=== PATIENT | female | born 1995 | race Caucasian/White ===

== ENCOUNTER 2017-07-04 18:22 | Emergency (ER) | payer OTHER ==
[2017-07-04 18:31] VITALS: BMI 33.4
--- NOTE | 2017-07-04 20:33 | PDOC ---
History of Present Illness - General History Source: Patient Exam Limitations: No Limitations - History of Present Illness Initial Comments: 07/04/17 20:35 22 y/o 7 week F (LMP: May 14, ) with no PMHx presents to the ED with vaginal bleeding today around 4 pm. Patient also reports intermittent sharp left sided abdominal pain since yesterday. The pain occurred about 3-4 times yesterday and only lasted a few seconds before resolving. Patient reports the pain is a 7-8/10. She reports increased nausea and vomiting since yesterday as well, and reports one episode of vomiting today. Patient has associated frontal headache. She reports her last coitis was one week ago. Patients first appointment with her OBGYN for her is tomorrow. Her last was otherwise normal with the exception of having an emergency at 41 weeks due to distress. During her last she had chlamydia, which was treated. She is currently taking vitamins with iron. She denies tobacco, alcohol, or drug use. She denies fever, chills, chest pain, SOB, urinary complaints. OBGYN; Chelsea Crow <Chanell Guallpa - Last Filed: 07/04/17 22:38> <Any Gaviria - Last Filed: 07/04/17 22:44> - General Chief Complaint: Vaginal Bleeding Stated Complaint: VAGINAL BLEEDING/7 WKS Time Seen by Provider: 07/04/17 18:49 Past History <Chanell Guallpa - Last Filed: 07/04/17 22:38> - Past Medical History Asthma: No Cancer: No Cardiac Disorders: No Diabetes: No HTN: No Seizures: No Thyroid Disease: No - Reproductive History (#): 2 Para: 1 Therapeutic (s) & number: No Spontaneous : 0 - Immunization History Immunization Up to Date: Yes - Suicide/Smoking/Psychosocial Hx Smoking History: Never smoked Have you smoked in the past 12 months: No Hx Alcohol Use: No Drug/Substance Use Hx: No Substance Use Type: None Hx Substance Use Treatment: No <Any Gaviria - Last Filed: 07/04/17 22:44> - Past Medical History Allergies/Adverse Reactions: Allergies Allergy/AdvReac Type Severity Reaction Status Date / Time No Known Allergies Allergy Verified 07/04/17 18:29 Home Medications: Ambulatory Orders NK [No Known Home Medication] 07/04/17 Review of Systems - Review of Systems Able to Perform ROS?: Yes Comments:: 07/04/17 20:35 CONSTITUTIONAL: Absent: fever, chills, diaphoresis, generalized weakness, malaise, loss of appetite HEENT: Absent: rhinorrhea, nasal congestion, throat pain, throat swelling, difficulty swallowing, mouth swelling, ear pain, eye pain, visual changes CARDIOVASCULAR: Absent: chest pain, syncope, palpitations, irregular heart rate , lightheadedness, peripheral edema RESPIRATORY: Absent: cough, shortness of breath, dyspnea with exertion, orthopnea, wheezing, stridor, hemoptysis GASTROINTESTINAL: (+) left sided abdominal pain, nausea, vomiting. Absent: diarrhea, constipation, melena, hematochezia GENITOURINARY: (+) vaginal bleeding. Absent: dysuria, frequency, urgency, hesitancy, hematuria, flank pain, genital pain MUSCULOSKELETAL: Absent: myalgia, arthralgia, joint swelling SKIN: Absent: rash, itching, pallor HEMATOLOGIC/IMMUNOLOGIC: Absent: easy bleeding, easy bruising, lymphadenopathy, frequent infections ENDOCRINE: Absent: unexplained weight gain, unexplained weight loss, heat intolerance, cold intolerance NEUROLOGIC: (+) headache Absent:focal weakness or paresthesias, dizziness, unsteady gait, seizure, mental status changes, bladder or bowel incontinence PSYCHIATRIC: Absent: anxiety, depression, suicidal or homicidal ideation, hallucinations. <Chanell Guallpa - Last Filed: 07/04/17 22:38> *Physical Exam - Vital Signs Last Vital Signs Temp Pulse Resp BP Pulse Ox 98.6 F 88 18 115/57 100 07/04/17 18:29 07/04/17 18:29 07/04/17 18:29 07/04/17 18:29 07/04/17 18:29 - Physical Exam Comments: 07/04/17 20:35 GENERAL: Well developed, well nourished. Awake and alert. No acute distress. HEENT: Normocephalic, atraumatic. PERRLA, EOMI. No conjunctival pallor. Sclera are non-icteric. Moist mucous membranes. Oropharynx is clear. NECK: Supple. Full ROM. No JVD. Carotid pulses 2+ and symmetric, without bruits. No thyromegaly. No lymphadenopathy. CARDIOVASCULAR: Regular rate and rhythm. No murmurs, rubs, or gallops. Distal pulses are 2+ and symmetric. PULMONARY: No evidence of respiratory distress. Lungs clear to auscultation bilaterally. No wheezing, rales or rhonchi. ABDOMINAL: Soft. Non-tender. Non-distended. No rebound or guarding. No organomegaly. Normoactive bowel sounds. MUSCULOSKELETAL: Normal range of motion at all joints. No bony deformities or tenderness. No CVA tenderness. EXTREMITIES: No cyanosis. No clubbing. No edema. No calf tenderness. SKIN: Warm and dry. Normal capillary refill. No rashes. No jaundice. NEUROLOGICAL: Alert, awake, appropriate. Cranial nerves 2-12 intact. No deficits to light touch and temperature in face, upper extremities and lower extremities. No motor deficits in the in face, upper extremities and lower extremities. Normoreflexic in the upper and lower extremities. Normal speech. Toes are downgoing bilaterally. Gait is normal without ataxia. PSYCHIATRIC: Cooperative. Good eye contact. Appropriate mood and affect. : No adnexal tenderness, no significant bleeding, os is closed, no CMT, cervix was slightly erythematous <Chanell Guallpa - Last Filed: 07/04/17 22:38> - Vital Signs Last Vital Signs Temp Pulse Resp BP Pulse Ox 98.6 F 88 18 115/57 100 07/04/17 18:29 07/04/17 18:29 07/04/17 18:29 07/04/17 18:29 07/04/17 18:29 <Any Gaviria - Last Filed: 07/04/17 22:44> ED Treatment Course - RADIOLOGY Radiograph Interpretation: 07/04/17 22:38 Transvaginal US reported by Dr. Pineda Navarro Impression: Single viable intrauterine gestation at approximately 5 weeks 6 days. The embryonic cardiac rate is somewhat low measuring 66 bpm - ? transient finding versus bradycardia. 2 cm complex left ovarian cyst probably representing a corpus luteum. <Chanell Guallpa - Last Filed: 07/04/17 22:38> - RADIOLOGY Radiology Studies Ordered: Category Date Time Status TRANSVAGINAL US PREG [US] Stat Ultrasound 07/04/17 19:21 Ordered <Any Gaviria - Last Filed: 07/04/17 22:44> Medical Decision Making - Medical Decision Making 07/04/17 22:43 bhcg >48127\ SL IUP % weeks 6 days ,FHT only 66 pt has appt with [facility] tomorrow IMP threatened AB <Any Gaviria - Last Filed: 07/04/17 22:44> *DC/Admit/Observation/Transfer - Attestations Scribe Attestion: 07/04/17 20:36 Documentation prepared by Chanell Guallpa, acting as medical assistant cardiology for Any Gaviria MD. <Chanell Guallpa - Last Filed: 07/04/17 22:38> - Discharge Dispostion Admit: No <Any Gaviria - Last Filed: 07/04/17 22:44> Diagnosis at time of Disposition: Threatened - Discharge Dispostion Disposition: HOME Condition at time of disposition: Stable - Patient Instructions Printed Discharge Instructions: DI for Vaginal Bleeding During Additional Instructions: please keep your appointment with your leather stretcher
[2017-07-04 23:00] VITALS: BP 124/75; PULSE 82; TEMP 98.1
== END 2017-07-04 22:00 | disposition home or self-care (01) ==
LOC: JER 18:22
DX: O20.0 Threatened abortion (principal); Z3A.01 Less than 8 weeks gestation of pregnancy
CPT/HCPCS: 36415; 76817-TC; 84702; 86850; 86900; 86901; 99282-25

== ENCOUNTER 2018-03-03 12:35 | Inpatient (IN) | payer OTHER ==
[~2018-03-03 12:35] MED LIST: ELECTROLYTE-148 SOLN 1,000 ML IV ONE
[2018-03-03] MEDS ORDERED: CITRIC ACID/SODIUM CITRATE 30 ML UNIT-DOSE CUP PO ONE (13:00)
[2018-03-03 13:23] VITALS: BMI 39.1
[2018-03-03] MEDS ORDERED: ELECTROLYTE-148 SOLN 1,000 ML IV SCH (13:35)
[2018-03-03] MEDS ORDERED: OXYTOCIN 20 UNITS in 0.9% NS 20 UNIT/1,000 ML INFUS.BAG IV ONE ×2 (13:47→16:02)
[2018-03-03] MEDS ORDERED: morphine SULFATE/Preservative Free 0.5 MG/ML (1cc Syringe) ONE (13:49)
[2018-03-03] MEDS ORDERED: PROPOFOL 20 ML ONE (14:02)
--- NOTE | 2018-03-03 15:03 | HP ---
Past Medical History - Primary Care Physician PCP:: Waqar Rojas - Admission Chief Complaint: 40.6 weeks,previous c/s History of Present Illness: 22 yo f 40.6 weeks, with previous c/s requesting repeat c/s rba discussed, cx clp vx -4 mi, fhr cat1 History Source: Patient Limitations to Obtaining History: No Limitations - Past Medical History ...: 2 ...Para: 1 ...Term: 1 ...: 0 ...Spon : 0 ...Induced : 0 ...Multiple Gestation: 0 ...LMP: 05/14/17 ... Weeks Gestation by Dates: 41.6 ...EDC by Dates: 02/18/18 ...EDC by Sono: 02/28/18 - Past Surgical History Past Surgical History: Yes: Hx Myomectomy: No Hx Transabdominal Cerclage: No - Smoking History Smoking history: Never smoked Have you smoked in the past 12 months: No - Alcohol/Substance Use Hx Alcohol Use: No - Social History Usual Living Arrangement: Yes: With Spouse History of Recent Travel: No Home Medications - Allergies Allergies/Adverse Reactions: Allergies Allergy/AdvReac Type Severity Reaction Status Date / Time No Known Allergies Allergy Verified 03/03/18 13:29 - Home Medications Home Medications: Ambulatory Orders Vit Calc,Iron,Folic [ Vitamins] 1 tab PO DAILY 12/14/17 Iron 1 tab PO DAILY 01/10/18 Review of Systems - Review of Systems Constitutional: reports: No Symptoms Eyes: reports: No Symptoms HENT: reports: No Symptoms Neck: reports: No Symptoms Cardiovascular: reports: No Symptoms Respiratory: reports: No Symptoms Gastrointestinal: reports: No Symptoms Genitourinary: reports: No Symptoms Breasts: reports: No Symptoms Reported Integumentary: reports: No Symptoms Neurological: reports: No Symptoms Endocrine: reports: No Symptoms Psychiatric: reports: No Symptoms Physical Exam - Maternity Vital Signs: Vital Signs Temperature 98.4 F 03/03/18 13:00 Pulse Rate 114 H 03/03/18 13:00 Respiratory Rate 18 03/03/18 13:00 Blood Pressure 124/86 03/03/18 13:00 O2 Sat by Pulse Oximetry (%) Constitutional: Yes: Well Nourished, No Distress, Calm Eyes: Yes: WNL, Conjunctiva Clear, EOM Intact HENT: Yes: WNL, Atraumatic, Normocephalic Neck: Yes: WNL, Supple, Trachea Midline Cardiovascular: Yes: WNL, Regular Rate and Rhythm Breast(s): Yes: WNL - Abdominal Exam/OB Fundal Height: 40 Number of Fetuses: Single Presentation: Vertex Contractions: No Intensity: Unaware Heart Rate Location: [facility] Category: I Accelerations: Uniform Decelerations: None - Vaginal Exam/OB Vaginal Bleediing: No Speculum Exam: No Dilatation (cm): closed Effacement (%): 0 Amniotic Membrane Status: Intact Presentation: Vertex/Position Station: -4 Hemorrhage Risk Assessment - Risk Factors Medium Risk Factors: Yes: Prior , uterine surgery,or multiple laparotomies Risk Score: 1 Risk Level: Medium Risk Problem List - Problems (1) Postmaturity , 40-42 weeks gestation Code(s): O48.0 - POST-TERM (2) Previous delivery affecting , antepartum Code(s): O34.219 - MATERNAL CARE FOR UNSP TYPE SCAR FROM PREVIOUS DEL Assessment/Plan repeat c/s , rba discussed
[2018-03-03] MEDS ORDERED: ONDANSETRON 4 MG/2 ML VIAL IVPUSH PRN (15:11)
[2018-03-03] MEDS ORDERED: diphenhydrAMINE HCL 25 MG CAPSULE (FP) PO PRN (15:47)
[2018-03-03] MEDS ORDERED: BENZOCAINE 28 GM HEMORRHOIDAL OINTMENT PR PRN (15:47)
[2018-03-03] MEDS ORDERED: WITCH HAZEL 50% (TUCKS) 40 PAD/JAR PAD TP PRN (15:47)
[2018-03-03] MEDS ORDERED: oxyCODONE HCL 5 MG TABLET PO PRN ×2 (15:47)
[2018-03-03] MEDS ORDERED: METHYLERGONOVINE MALEATE 0.2 MG/1 ML AMP IM PRN (15:47)
[2018-03-03] MEDS ORDERED: BENZOCAINE 20% 57 GM BOTTLE TP PRN (15:47)
[2018-03-03] MEDS ORDERED: OXYTOCIN 20 UNITS in 0.9% NS 20 UNIT/1,000 ML INFUS.BAG IV SCH (16:00)
[2018-03-03] MEDS ORDERED: DEXTROSE 5%-LACTATED RINGERS 1,000 ML IV SCH (16:00)
[2018-03-03] MEDS ORDERED: IBUPROFEN 800 MG/8 ML IJ IVPB ONE (16:20)
[2018-03-03] MEDS: IBUPROFEN 800 MG/8 ML IJ IVPB PRN (16:27)
[2018-03-03] MEDS ORDERED: CEFAZOLIN 1 GM in DEXTROSE 5%-WATER - 50 ML IVPB SCH (18:00)
[2018-03-03 19:37] LABS: URINE AMPHETAMINES NEGATIVE ng/ml (CUTOFF=500)
[2018-03-03 19:38] LABS: COCAINE, UR NEGATIVE ng/ml (CUTOFF=300); METHADONE, UR NEGATIVE ng/ml (CUTOFF=300); OPIATES, URI NEGATIVE ng/ml (CUTOFF=300); PHENCYCLIDINE,URINE NEGATIVE ng/ml (CUTOFF=25); URINE BARBITURATES NEGATIVE ng/ml (CUTOFF=200); URINE BENZODIAZEPINES NEGATIVE ng/ml (CUTOFF=200)
--- NOTE | 2018-03-03 19:46 | OP ---
DATE OF OPERATION: 03/03/2018 PREOPERATIVE DIAGNOSIS: 40.6 weeks' gestation. Previous section. Request of repeat section. POSTOPERATIVE DIAGNOSIS: 40.6 weeks' gestation. Previous section. Request of repeat section. PROCEDURE: Repeat low segment transverse section and lysis of adhesions. SURGEON: Brennan Rojas M.D. OCCUPATIONAL MEDICINE PHYSICIAN: Chase Mcginnis ANESTHESIA: Spinal. ANESTHESIOLOGIST: Louise Leung M.D. ESTIMATED BLOOD LOSS: 500 mL. FINDINGS: Live baby Apgars 9 and 9. OPERATION: Patient was taken to operating room with adequate spinal anesthesia. Abdomen and perineum were prepped and draped. Pfannenstiel abdominal skin incision was made over the previous incision. Abdominal wall was cut layer by layer until the peritoneum was exposed and incised. Upon entering the abdominal cavity, the lower uterine segment was identified, and uterovesical fold of the peritoneum was established. The bladder was pushed down. Then with the lower blade of the [place] retractor in the pelvis, a low transverse uterine incision was made. The incision extended laterally. Amniotic sac was entered. Clear fluid. Head delivered from right occipital transverse position. Nasopharynx was suctioned. A live baby was delivered. Placenta was delivered manually. Uterine cavity was cleared of all remaining tissue. Uterine incision was closed in 2 layers, the 1st layer with 0 Biosyn continuous suture, the 2nd layer with 0 Biosyn imbricating the 1st layer. Bladder flap was closed with 0 Biosyn continuous suture. Both tubes and ovaries were checked and were normal. No active bleeding was seen. All the lap, sponge, and instrument counts were correct. There were several omental adhesions to the anterior peritoneum and also to the anterior uterine wall which were lysed and with Metzenbaum and cauterized. And then pelvic cavity irrigated. No bleeding was seen. Peritoneum was closed with 0 Biosyn continuous suture. Muscles were brought together interrupted suture with 0 Biosyn. Fascia was closed with 0 Biosyn continuous sutures. Subcutaneous fat interrupted sutures 0 Biosyn, and the skin was closed with deion. The patient tolerated the procedure well and left the OR in good condition. BRENNAN ROJAS M.D. [id number]
[2018-03-03] MEDS ORDERED: DEXTROSE 5%-WATER - 50 ML IVPB ONE (20:59)
[2018-03-03] MEDS ORDERED: ceFAZolin SODIUM 1 GM VIAL ONE (20:59)
[2018-03-03] MEDS: CEFAZOLIN 1 GM in DEXTROSE 5%-WATER - 50 ML IVPB SCH (21:21)
[2018-03-04] MEDS ORDERED: DEXTROSE 5%-WATER - 50 ML IVPB ONE (05:35)
[2018-03-04] MEDS ORDERED: ceFAZolin SODIUM 1 GM VIAL ONE (05:35)
[2018-03-04] MEDS: CEFAZOLIN 1 GM in DEXTROSE 5%-WATER - 50 ML IVPB SCH (05:45)
[2018-03-04] MEDS: IBUPROFEN 800 MG/8 ML IJ IVPB PRN (06:22)
--- NOTE | 2018-03-04 08:06 | PN ---
Post Progress Note - Subjective Subjective: 22 yo Para 2 status post repeat , seen and evaluated. She's out of bed to chair; doing well. Post Day: 1 Type of Delivery: Repeat C/S Vital Signs: Vital Signs Temperature 98.7 F 03/04/18 05:45 Pulse Rate 90 03/04/18 05:45 Respiratory Rate 18 03/04/18 08:00 Blood Pressure 128/70 03/04/18 05:45 O2 Sat by Pulse Oximetry (%) 99 03/03/18 16:10 Breast Exam: Yes: Soft Uterus: Yes: Fundus @ umbilicus Incision: Yes: Dressing dry and intact Abdomen/GI: Yes: Abdomen soft Lochia: Yes: Rubra Lochia, amount: Small Extremities: Yes: Calves non-tender Activity: Ambulating Problem List - Problems (1) Status post repeat low transverse section Code(s): Z98.891 - HISTORY OF UTERINE SCAR FROM PREVIOUS SURGERY Assessment/Plan Status post repeat Ambulation Analgesia as needed Continue routine post op care
[2018-03-04 08:31] LABS: BASO % 0.4 % (0-2.0); EOS % 1.2 % (0-4.5); HEMATOCRIT 31.5 % (32.4-45.2); HEMOGLOBIN 10.2 GM/dL (10.7-15.3); MCH 27.2 pg (25.7-33.7); MCHC 32.5 g/dl (32.0-36.0); MEAN CELL VOLUME 83.5 fl (80-96); MEAN PLT VOLUME 11.5 fl (7.5-11.1); NEUT % 74.4 % (42.8-82.8); PLATELET COUNT 124 K/MM3 (134-434); RBC 3.77 M/mm3 (3.60-5.2); RDW 15.6 % (11.6-15.6); WHITE BLOOD COUNT 11.4 K/mm3 (4.0-10.0)
[2018-03-04] MEDS: ENOXAPARIN NA (PORCINE) 40 MG/0.4 ML DISP.SYRIN SQ SCH (09:03)
[2018-03-04] MEDS ORDERED: DIPHTH,PERTUSS(ACELL),TET 0.5 ML DISP.SYRIN IM ONE (10:00)
[2018-03-04] MEDS: ACETAMINOPHEN 325 MG TABLET (FP) PO PRN ×2 (14:37→22:43)
[2018-03-04] MEDS: SIMETHICONE 80 MG TAB.CHEW (FP) PO PRN ×3 (14:37→22:42)
[2018-03-04] MEDS ORDERED: BISACODYL 10 MG SUPP.RECT RC PRN (15:47)
[2018-03-04] MEDS: IBUPROFEN 600 MG TABLET (FP) PO PRN (18:10)
[2018-03-05] MEDS: SIMETHICONE 80 MG TAB.CHEW (FP) PO PRN ×3 (03:02→20:18)
[2018-03-05] MEDS: IBUPROFEN 600 MG TABLET (FP) PO PRN ×3 (03:04→20:18)
[2018-03-05] MEDS: ENOXAPARIN NA (PORCINE) 40 MG/0.4 ML DISP.SYRIN SQ SCH (08:59)
[2018-03-05] MEDS: ACETAMINOPHEN 325 MG TABLET (FP) PO PRN ×2 (11:54→20:19)
--- NOTE | 2018-03-05 12:23 | PN ---
Post Progress Note - Subjective Subjective: 22 yo Para 2, status post repeat , seen and evaluated. Doing well. Post Day: 2 Type of Delivery: Repeat C/S Vital Signs: Vital Signs Temperature 98.5 F 03/05/18 09:30 Pulse Rate 96 H 03/05/18 09:30 Respiratory Rate 20 03/05/18 09:30 Blood Pressure 121/76 03/05/18 09:30 O2 Sat by Pulse Oximetry (%) 99 03/03/18 16:10 Breast Exam: Yes: Soft Uterus: Yes: Fundus @ umbilicus Incision: Yes: [place] intact Abdomen/GI: Yes: Abdomen soft Lochia: Yes: Rubra Lochia, amount: Small Extremities: Yes: Calves non-tender Activity: Ambulating - Labs Labs: CBC WBC 11.4 K/mm3 (4.0-10.0) H 03/04/18 07:00 RBC 3.77 M/mm3 (3.60-5.2) 03/04/18 07:00 Hgb 10.2 GM/dL (10.7-15.3) L 03/04/18 07:00 Hct 31.5 % (32.4-45.2) L 03/04/18 07:00 MCV 83.5 fl (80-96) 03/04/18 07:00 MCH 27.2 pg (25.7-33.7) 03/04/18 07:00 MCHC 32.5 g/dl (32.0-36.0) 03/04/18 07:00 RDW 15.6 % (11.6-15.6) 03/04/18 07:00 Plt Count 124 K/MM3 (134-434) L 03/04/18 07:00 MPV 11.5 fl (7.5-11.1) H 03/04/18 07:00 Absolute Neuts (auto) 8.5 # 03/04/18 07:00 Neutrophils % 74.4 % (42.8-82.8) 03/04/18 07:00 Lymphocytes % 17.0 % (8-40) D 03/04/18 07:00 Monocytes % 7.0 % (3.8-10.2) 03/04/18 07:00 Eosinophils % 1.2 % (0-4.5) 03/04/18 07:00 Basophils % 0.4 % (0-2.0) 03/04/18 07:00 Nucleated RBC % 0 % (0-0) 03/04/18 07:00 Problem List - Problems (1) Status post repeat low transverse section Code(s): Z98.891 - HISTORY OF UTERINE SCAR FROM PREVIOUS SURGERY Assessment/Plan Status post repeat Ambulation Analgesia as needed Continue routine post op care
[2018-03-05] MEDS ORDERED: SENNOSIDES/DOCUSATE COMBO (SENNA PLUS) TABLET (UD) PO PRN (22:00)
[2018-03-06] MEDS: IBUPROFEN 600 MG TABLET (FP) PO PRN (03:05)
[2018-03-06] MEDS: ACETAMINOPHEN 325 MG TABLET (FP) PO PRN (03:05)
--- NOTE | 2018-03-06 03:12 | DS ---
Physical Exam-C D STRIPPER Vital Signs: Vital Signs Temperature 98.1 F 03/05/18 22:00 Pulse Rate 91 H 03/05/18 22:00 Respiratory Rate 20 03/05/18 22:00 Blood Pressure 128/75 03/05/18 22:00 O2 Sat by Pulse Oximetry (%) 99 03/03/18 16:10 Constitutional: Yes: Well Nourished Eyes: Yes: Conjunctiva Clear HENT: Yes: Atraumatic Neck: Yes: Supple Cardiovascular: Yes: Regular Rate and Rhythm Respiratory: Yes: Regular Gastrointestinal: Yes: Normal Bowel Sounds Pelvis: Yes: WNL External Genitalia: Yes: Normal Vaginal Exam: Yes: Normal Cervix: Yes: Normal Uterus: Yes: Firm ....Post : Yes: Uterus firm, Slight lochia rubra Wound/Incision: Yes: [place] Intact Neurological: Yes: Alert, Oriented ...Motor Strength: WNL Psychiatric: Yes: Alert, Oriented Labs: CBC, BMP 03/04/18 07:00 Delivery - Delivery Type of Anesthesia: Spinal Episiotomy/Laceration: None EBL (cc): 500 Delivery, Single - Stages of Labor Date of Delivery: 03/03/18 Time of Delivery: 14:25 Time Placenta Delivered: 14:26 - Condition of Infant Sock Drier/Data Processing Control Clerk Present: Yes Name: Arjun Rodriguez Infant Gender: Male Weight: 8 lb 3 oz Position: Right, OT Total Hours ROM (Hrs/Mins): 0/2 - 1 Minute Total Score: 9 5 Minutes Total Score: 9 - [place] Feeding Plan Initial Plan: Elected not to breastfeed exclusively throughout hospitalization Discharge Summary Reason For Visit: REPEAT C SECTION Current Active Problems Postmaturity , 40-42 weeks gestation (Acute) Previous delivery affecting , antepartum (Acute) Status post repeat low transverse section (Acute) Procedures: Principal: Repeat Low Transverse Hospital Course: Routine post op care Condition: Good - Instructions Diet, Activity, Other Instructions: Regular diet No driving, no lifting x 4 weeks F/U with MD in 1 week. Disposition: HOME - Home Medications Comprehensive Discharge Medication List: Ambulatory Orders Vit Calc,Iron,Folic [ Vitamins] 1 tab PO DAILY 12/14/17 Iron 1 tab PO DAILY 01/10/18
[2018-03-06 08:11] VITALS: BP 129/80; PULSE 87; TEMP 98.2
[2018-03-06 08:31] LABS: BASO % 0.3 % (0-2.0); EOS % 3.1 % (0-4.5); HEMATOCRIT 26.4 % (32.4-45.2); HEMOGLOBIN 8.7 GM/dL (10.7-15.3); LYMPH % 26.1 % (8-40); MCH 27.6 pg (25.7-33.7); MCHC 32.9 g/dl (32.0-36.0); MEAN CELL VOLUME 83.7 fl (80-96); MEAN PLT VOLUME 10.5 fl (7.5-11.1); NEUT % 62.5 % (42.8-82.8); PLATELET COUNT 125 K/MM3 (134-434); RBC 3.15 M/mm3 (3.60-5.2); RDW 15.7 % (11.6-15.6); WHITE BLOOD COUNT 8.5 K/mm3 (4.0-10.0)
[2018-03-06] MEDS: ENOXAPARIN NA (PORCINE) 40 MG/0.4 ML DISP.SYRIN SQ SCH (09:24)
--- NOTE | 2018-03-09 16:57 | PATH ---
Surgical Pathology Report Patient Name: SHADIA HAENY Med. Rec. #: [id number] /Age/Gender: 1995 (Age: 22) / F Account: [id number] Location: [facility] OBS/[place] Taken: 03/03/2018 Received: 03/06/2018 Reported: 03/09/2018 Physicians: Waqar Rojas M.D. Specimen(s) Received PLACENTA Clinical History , 40+ weeks, previous x1, for repeat Final Diagnosis PLACENTA: THIRD TRIMESTER PLACENTA. TRIVASCULAR CORD. MEMBRANES WITH NO DIAGNOSTIC ABNORMALITIES. Electronically Signed Diann Young M.D. Gross Description The specimen is received fresh labeled placenta and is a 486 gram, 19.5 x 14.0 x 2.7 cm. placenta with attached membranes and umbilical cord. The attached membranes are chung, translucent with focal opacities and insert marginally. The umbilical cord measures 24 cm. in length and averages 1 cm. in diameter. The cord inserts eccentrically, 2.5 cm. to the nearest margin. No true knots or strictures are identified. Cut surface of the umbilical cord reveals 3 vessels. The surface is garcia-blue with minimal fibrin deposition and appropriate caliber vessels. The maternal surface is red-brown with focal defects. Sectioning reveals red-brown, spongy parenchyma. No lesions are identified. [employer] sections are submitted in three cassettes as follows: 1- membrane rolls and umbilical cord; 2-3- full thickness sections of placenta. /03/07/2018 [facility]03/07/2018
== END 2018-03-06 11:20 | disposition home or self-care (01) | DRG 540 ==
LOC: JLDR 12:35 → J3W 16:30
PROVIDERS: ADMIT Obstetrics & Gynecology; ATTEND Obstetrics & Gynecology
PROC: 10D00Z1 Extraction of Products of Conception, Low, Open Approach (ICD-10-PCS; principal; 2018-03-03)
DX: O34.211 Maternal care for low transverse scar from previous cesarean delivery (principal); O48.0 Post-term pregnancy; Z3A.40 40 weeks gestation of pregnancy; Z37.0 Single live birth
CPT/HCPCS: 36415; 80307; 85025; 88307-TC; 90715

== ENCOUNTER 2022-01-11 19:54 | Emergency (ER) | payer OTHER ==
[2022-01-11 20:02] VITALS: BP 117/80; PULSE 84; TEMP 97.8; BMI 37.5
[2022-01-11] MEDS ORDERED: SODIUM CHLORIDE 0.9% 500 ML INFUS.BAG IV ONE (21:47)
[2022-01-11 21:57] LABS: BASO % 0.7 % (0-2.0); EOS % 4.7 % (0-4.5); HEMATOCRIT 38.3 % (32.4-45.2); LYMPH % 32.3 % (8-40); MCH 29.3 pg (25.7-33.7); MEAN CELL VOLUME 86.2 fl (80-96); MEAN PLT VOLUME 9.9 fl (7.5-11.1); MONO % 7.6 % (3.8-10.2); NEUT % 54.7 % (42.8-82.8); PLATELET COUNT 248 10^3/uL (134-434); RBC 4.44 M/mm3 (3.60-5.2); RDW 13.4 % (11.6-15.6); WHITE BLOOD COUNT 8.4 K/mm3 (4.0-10.0)
[2022-01-11 22:01] LABS: EPI CELLS 32 /uL (0-25.1); HYALINE CASTS 1 /uL (0-3.1); PH,URINE 5.5 (5.0-8.0); URINE APPEARANCE CLEAR; URINE BACTERIA 100 /uL (0-1359); URINE BILIRUBIN NEGATIVE (NEGATIVE); URINE COLOR YELLOW; URINE GLUCOSE (UA) NEGATIVE (NEGATIVE); URINE KETONE TRACE (NEGATIVE); URINE LEUK ESTERASE TRACE (NEGATIVE); URINE NITRITE NEGATIVE (NEGATIVE); URINE PROTEIN TRACE (NEGATIVE); URINE RBC 2554 /uL (0-23.9); URINE UROBILINOGEN 0.2 mg/dL (0.2-1.0); URINE WBC 20 /uL (0-25.8)
[2022-01-11 22:19] LABS: CHLORIDE 106 mmol/L (98-107); SODIUM 142 mmol/L (136-145)
[2022-01-11 22:22] LABS: ANION GAP 6 MMOL/L (8-16); BLOOD UREA NITROGEN 12.8 mg/dL (7-18); CO2 30 mmol/L (21-32); GLUCOSE,RANDOM 102 mg/dL (74-106)
[2022-01-11 22:25] LABS: CREATININE 0.7 mg/dL (0.55-1.3); SGOT/AST 50 U/L (15-37); SGPT/ALT 87 U/L (13-61)
[2022-01-11 22:27] LABS: BILIRUBIN,TOTAL 0.6 mg/dL (0.2-1); TOT PROT 7.7 g/dl (6.4-8.2)
[2022-01-11 22:28] LABS: ALK PHOS 60 U/L (45-117)
== END 2022-01-11 22:52 | disposition home or self-care (01) ==
LOC: JER 19:54
DX: N92.0 Excessive and frequent menstruation with regular cycle (principal)
CPT/HCPCS: 36415; 80053; 81003; 84702; 85025; 86850; 86900; 86901; 87086; 87186; 99283-25

== ENCOUNTER 2024-07-05 14:14 | Emergency (ER) | payer OTHER ==
[2024-07-05 14:42] VITALS: BP 121/81; PULSE 82; RESP 20; TEMP 98.4; BMI 33.2
[2024-07-05] MEDS ORDERED: ALBUTEROL SO4 2.5/IPRATROPIUM 0.5 INH SOL 3 ML VIAL.NEB. NEB ONE (16:17)
[2024-07-05] MEDS ORDERED: predniSONE 20 MG TABLET (UD) ONE (16:18)
[2024-07-05] MEDS: ALBUTEROL SO4 2.5/IPRATROPIUM 0.5 INH SOL 3 ML VIAL.NEB. NEB ONE (16:29)
[2024-07-05 16:42] LABS: THROAT:GRP A STREP NOT DETECTED (NOTDETECTED)
[2024-07-05] MEDS: predniSONE 20 MG TABLET (UD) PO ONE (18:58)
[2024-07-06] MEDS ORDERED: predniSONE 20 MG TABLET (UD) PO ONE ×2 (16:10→17:11)
== END 2024-07-05 17:36 | disposition home or self-care (01) ==
LOC: JERFT 14:14
PROC: 3E0F7GC Introduction of Other Therapeutic Substance into Respiratory Tract, Via Natural or Artificial Opening (ICD-10-PCS; principal; 2024-07-05)
DX: J98.01 Acute bronchospasm (principal); R05.9 Cough, unspecified; R07.9 Chest pain, unspecified; Z20.822 Contact with and (suspected) exposure to COVID-19
CPT/HCPCS: 0241U-QW; 71046-TC-FY; 87651; 93005; 93010; 99285-25

== ENCOUNTER 2024-08-25 11:13 | Emergency (ER) | payer OTHER ==
[2024-08-25 11:30] VITALS: BP 129/86; PULSE 100; RESP 18; TEMP 97.7; BMI 37.4
== END 2024-08-25 13:17 | disposition home or self-care (01) ==
LOC: JER 11:13 → JERFT 11:13 → JER 13:17
DX: R10.2 Pelvic and perineal pain (principal); Z32.01 Encounter for pregnancy test, result positive
CPT/HCPCS: 36415; 84702; 99283-25